=== PATIENT | female | born 1990 | race Caucasian/White ===

== ENCOUNTER → 2025-02-26 08:45 | Outpatient (REF) | payer OTHER, SELFPAY | LOC: PNTC 08:45 | PROVIDERS: ATTENDING PHYSICIAN Student in an Organized Health Care Education/Training Program | DX: Z34.90 Encounter for supervision of normal pregnancy, unspecified, unspecified trimester (principal) | CPT/HCPCS: 36415; 86850; 86900; 86901; 96372; J2790 ==

== ENCOUNTER 2025-05-18 00:50 | Inpatient (IN) | payer OTHER, SELFPAY ==
[2025-05-18 01:15] VITALS: BP 126/78; BMI 24.9
[2025-05-18] MEDS: LR 1000 IV ×3 (02:12→08:57)
[2025-05-18 02:34] LABS: Hematocrit 38.3 % (37.0-47.0); Hemoglobin 13.2 g/dL (12.0-16.0); Mean Corp Hgb Conc. 34.5 g/dL (33.0-37.0); Mean Corpuscular Volume 90.3 fL (81.0-99.0); Nucleated Red Blood Cells % 0 %; Platelet Count 170 10^3/uL (130-400); Red Cell Dist. Width 12.4 % (11.5-14.5)
[2025-05-18] MEDS: STADOL 1 MG IV (04:10)
[2025-05-18] MEDS: SUBLIMAZE 100 MCG EPIDURAL (05:16)
[2025-05-18] MEDS: FENTANYL/BUPIVACAINE 100 EPIDURAL (05:17)
[2025-05-18] MEDS: PITOCIN 30 UNITS/NSS 500 ML IV (06:41)
[2025-05-18 10:59] LABS: Cord VBG B.E. - POC -4.2 mmol/L; Cord VBG HCO3 - POC 24 mmol/L; Cord VBG O2 Sat % - POC 22.5 %; Cord VBG pCO2 - POC 53 mmHg; Cord VBG pH - POC 7.26; Cord VBG pO2 - POC 19 mmHg
[2025-05-18 11:06] LABS: Cord ABG B.E. - POC -4.2 mmol/L; Cord ABG HCO3 - POC 26 mmol/L; Cord ABG pCO2 - POC 67 mmHg; Cord ABG pH - POC 7.19; Cord ABG pO2 - POC < 18 mmHg
[2025-05-18] MEDS: MOTRIN 600 MG PO ×2 (13:50→20:48)
[2025-05-18] MEDS: TYLENOL 650 MG PO ×2 (15:26→22:18)
[2025-05-18] MEDS: COLACE 100 MG PO (20:49)
[2025-05-18] MEDS: ZOLOFT 50 MG PO (22:09)
[2025-05-18] MEDS: SINGULAIR 10 MG PO (22:09)
[2025-05-19] MEDS: MOTRIN 600 MG PO ×3 (04:30→20:00)
[2025-05-19] MEDS: TYLENOL 650 MG PO ×4 (04:31→20:00)
[2025-05-19 05:52] LABS: Hematocrit 33.2 % (37.0-47.0); Hemoglobin 11.3 g/dL (12.0-16.0)
[2025-05-19] MEDS: PRENATAL PLUS 1 TABLET PO (08:43)
[2025-05-19] MEDS: COLACE 100 MG PO ×2 (13:41→20:00)
[2025-05-19] MEDS: ZOLOFT 50 MG PO (21:30)
[2025-05-19] MEDS: SINGULAIR 10 MG PO (21:30)
[2025-05-20] MEDS: TYLENOL 650 MG PO ×2 (02:23→08:54)
[2025-05-20] MEDS: MOTRIN 600 MG PO ×2 (02:23→08:54)
[2025-05-20] MEDS: PRENATAL PLUS 1 TABLET PO (08:54)
[2025-05-20] MEDS: COLACE 100 MG PO (08:54)
== END 2025-05-20 12:12 | disposition home or self-care (01) | DRG 768 ==
LOC: LDRP 00:50
PROVIDERS: Student in an Organized Health Care Education/Training Program; ADMITTING PHYSICIAN Obstetrics & Gynecology; FAMILY PHYSICIAN Family Medicine
PROC: 0KQM0ZZ Repair Perineum Muscle, Open Approach (ICD-10-PCS; 2025-05-18)
PROC: 10E0XZZ Delivery of Products of Conception, External Approach (ICD-10-PCS; 2025-05-18)
PROC: 0UQJXZZ Repair Clitoris, External Approach (ICD-10-PCS; 2025-05-18)
DX: O34.211 Maternal care for low transverse scar from previous cesarean delivery (principal); Z37.0 Single live birth; Z3A.39 39 weeks gestation of pregnancy; O70.1 Second degree perineal laceration during delivery; O71.89 Other specified obstetric trauma; O69.81X0 Labor and delivery complicated by cord around neck, without compression, not applicable or unspecified
CPT/HCPCS: 85014; 85018; 85025; 86780; 86850; 86900; 86901